=== PATIENT | female | born 1985 | race Caucasian/White ===

== ENCOUNTER 2020-07-01 14:02 | Inpatient (IN) | payer OTHER ==
[~2020-07-01] VITALS: Ht 177.8 cm; Wt 69.9 kg
--- NOTE | 2020-07-01 15:57 | NUR ---
89 year old 34 admitted to room # 508 for stabilization. Reports an addiction to HEROIN last used YESTERDAY hours prior to admission. Compliant with admission procedure. Patient denies any anxiety, but is unable to sit still, taps toes to floor continuously, looks about room, unable to focus eyes on nurse during interview. See assessment forms for additional information about patient status.
[2020-07-01 16:34] LABS: BASO % 0.4 % (0.0-1.0); EOS # 0.1 10*3/uL (0.0-0.4); HEMATOCRIT 37.4 % (37.0-47.0); LYMPH # 1.4 10*3/uL (1.3-4.4); LYMPH % 17.4 % (27.0-41.0); MEAN CELL VOLUME 84.2 fl (81.0-99.0); MEAN CORPUSCULAR HGB 26.1 pg (27.0-31.0); MEAN PLATELET VOLUME 8.5 fl (9.6-12.3); MONO # 0.3 10*3/uL (0.1-1.0); MONO % 3.9 % (3.0-9.0); NEUT # 6.1 10*3/uL (2.3-7.9); NEUT % 76.9 % (47.0-73.0); PLATELET COUNT AUTOMATED 304 10*3/uL (130-400); RED BLOOD COUNT 4.44 10*6/uL (4.10-5.10); RED CELL DISTRI WIDTH 14.1 % (0-14.5); WHITE BLOOD COUNT 7.9 10*3/uL (4.8-10.8)
[2020-07-01 17:02] VITALS: BP 116/61
[2020-07-01 17:03] LABS: ALBUMIN 3.2 gm/dl (3.1-4.5); ALKALINE PHOSPHATASE 65 U/L (45-117); BUN 22 mg/dl (7-24); CHLORIDE 109 mmol/L (98-107); CREATININE 1.51 mg/dL (0.55-1.02); POTASSIUM 4.4 mmol/L (3.5-5.1); SGOT/AST 21 IU/L (3-35); SGPT/ALT 23 U/L (12-78); SODIUM 137 mmol/L (136-145); TOTAL PROTEIN 7.4 gm/dL (6.4-8.2)
[2020-07-01 17:11] LABS: ETHYL ALCOHOL < 3.0 mg/dl (<3)
--- NOTE | 2020-07-01 17:35 | NUR ---
BELONGINGS TO SECURITY
--- NOTE | 2020-07-01 18:07 | NUR ---
AWAITING URINE SPECIMEN FROM PT
--- NOTE | 2020-07-01 19:56 | NUR ---
PT SEEN AND ASSESSED. PT DENIES ANY CURRENT WITHDRAWL SYMPTOMS. PT EDUCATED ON NEED FOR URINE SPECIMENS IN ORDER TO BEGIN MEDICATIONS THAT ARE ORDERED. PT VERBALIZED HER UNDERSTANDING OF THIS EDUCATION.
[2020-07-01 20:00] VITALS: BP 107/64
[2020-07-01 20:58] LABS: BILIRUBIN Negative (Negative); BLOOD 1+ (Negative); CLARITY Cloudy (Clear); COLOR Yellow (Yellow); GLUCOSE Negative (Negative); KETONE Negative (Negative); LEUKO ESTERASE 3+ (Negative); NITRITE Positive (Negative); SPECIFIC GRAVITY 1.015 (1.001-1.030); UROBILINOGEN 0.2 E.U./dl (0.0-1.0)
[2020-07-01 21:27] LABS: WBC 51-100 wbc/hpf (0-5)
[2020-07-01 21:28] LABS: BACTERIA 4+
[2020-07-01 21:36] LABS: URINE AMPHETAMINES > 1000 (1000ng/ml); URINE BARBITURATES < 200 (200ng/ml); URINE BENZODIAZEPINES < 200 (200ng/ml); URINE CANNABINOIDS (THC) < 50 (50ng/ml); URINE COCAINE < 300 (300ng/ml); URINE METHADONE < 300 (300ng/ml); URINE OPIATES > 300 (300ng/ml)
[2020-07-01 21:41] LABS: URINE PHENCYCLIDINE < 25 (25ng/ml)
--- NOTE | 2020-07-01 23:29 | NUR ---
24 HR chart check completed.
[2020-07-02] VITALS: BP 124/83
--- NOTE | 2020-07-02 00:13 | NUR ---
PT IS CRYING STATING SHE IS BECOMING ANXIOUS AND THAT SHE IS HAVING BODY ACHES. PT GIVEN PRN MEDICAITON FRO ANXIETY AND PAIN. PT INSTRUCTED ON MEDICATIONS. PT VERBALIZES HER UNDERSTANDING OF THIS EDUCATION. WILL REASSESS.
--- NOTE | 2020-07-02 01:13 | NUR ---
PT RESTING QUIELY WITH HER EYES CLOSED AND APPEARS TO BE SLEEPING AT THIS TIME.
--- NOTE | 2020-07-02 03:21 | NUR ---
PT REQUESTING MEDICATION FOR RESTLESSNESS. PT PROVIDED PRN MEDICATION.
--- NOTE | 2020-07-02 04:20 | NUR ---
PT RESTING QUIETLY IN BED WITH NO CURRENT COMPLAINTS
[2020-07-02 08:00] VITALS: BP 122/88
[2020-07-02 12:00] VITALS: BP 131/91
--- NOTE | 2020-07-02 12:27 | NUR ---
PATIENT MEETS [facility]. CINA=[id number]. PATIENT IS WANTING TO FOLLOW UP WITH [facility] FOR HER AFTERCARE PLAN. JASON GLEZ B.A. RN TRAVEL
--- NOTE | 2020-07-02 15:12 | NUR ---
[facility] STAFF IN TO SEE PATIENT. PATIENT WILL FOLLOW UP WITH [facility] FOR HER AFTERCARE PLAN. JASON GLEZ B.A. SENIOR ACCOUNTANT ANALYST
--- NOTE | 2020-07-02 16:31 | NUR ---
PT REQUESTING TO LEAVE AMA, PT ENCOURAGED TO STAY AND FINISH PROGRAM
--- NOTE | 2020-07-02 16:44 | NUR ---
NOTIFIED OF AMA
== END 2020-07-02 18:16 | disposition left against medical advice (07) | DRG 770 ==
LOC: 5E 14:02
PROVIDERS: Student in an Organized Health Care Education/Training Program; ADMIT Internal Medicine; ATTEND Internal Medicine
DX: F11.23 Opioid dependence with withdrawal (principal); R45.1 Restlessness and agitation; D64.9 Anemia, unspecified; F17.210 Nicotine dependence, cigarettes, uncomplicated; F19.90 Other psychoactive substance use, unspecified, uncomplicated; Z53.29 Procedure and treatment not carried out because of patient's decision for other reasons; Z71.6 Tobacco abuse counseling; Z98.891 History of uterine scar from previous surgery; Z79.899 Other long term (current) drug therapy